=== PATIENT | male | born 1960 | race Caucasian/White ===

== ENCOUNTER 2017-01-07 07:07 | Emergency (ER) | payer OTHER ==
--- NOTE | ~2017-01-07 | EKG ---
PATIENT: EVA QUINTANA UNIT #: [id number] Ventricular Rate: 80 BPM Atrial Rate: 80 BPM P-R Interval: 160 ms QRS Duration: 74 ms Q-T Interval: 364 ms QTC Calculation(Bezet): 419 ms P Simms: 24 degrees Calculated R Simms: 24 degrees Calculated T Simms: 19 degrees Diagnosis Line: Normal sinus rhythm Diagnosis Line: Normal ECG Diagnosis Line: When compared with ECG of 29-NOV-2013 10:43, Diagnosis Line: No significant change was found Diagnosis Line: Confirmed by SALEEM STEVENSON MD ([id number]) on 01/08/2017 Diagnosis Line: 10:35:29 AM INTERPRETING MD: ELVA CONDE
--- NOTE | ~2017-01-07 | MR18 ---
[facility] RADIOLOGY TEXT RESULTS PATIENT: EVA QUINTANA LOCATION: [facility] : 60 UNIT #: [id number] AGE: [address]: Dante Moralez MD SEX: M ORDER DR: [id number] [place], [place] [address] [id number] E MR#: [id number] Acc #: [id number] NAME: EVA QUINTANA : 1960 SEX: M STUDY DATE/TIME: 01/07/2017 9:52 UNIT: [facility] ROOM: STUDY DESCRIPTION: MR Brain Wo Contrast Attending Physician: Dante Moralez M.D. Ordering Physician: Dante Moralez M.D. Primary Care Physician: Jonah Carmona M.D. [facility] REPORT This report is preliminary unless electronic signature is present. EXAM Brain MRI without contrast 01/07/2017 PROCEDURE Unenhanced brain MRI COMPARISON 11/29/2013 HISTORY Difficulty with word finding. Dizziness and disorientation began this morning at 06:15. FINDINGS There is no MR evidence of acute ischemia. There is no evidence of acute intracranial hemorrhage. 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 Brain parenchymal signal is otherwise normal and there is no hydrocephalus or extraaxial fluid collection. IMPRESSION Essentially normal brain MRI without contrast. No acute ischemia or acute hemorrhage or mass. 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 No acute abnormality is seen. Dictated by... Coy Jack M.D. THIS IS AN ELECTRONICALLY VERIFIED REPORT Coy Jack M.D. at 01/07/2017 1:18 PM TEV/cmm [facility] RADIOLOGY TEXT RESULTS PATIENT: EVA QUINTANA LOCATION: [facility] : 60 UNIT #: [id number] AGE: [address]: Dante Moralez MD SEX: M ORDER DR: TD: 01/07/2017 13:07 JOB #: [id number] [facility] REPORT Page 1 of 1 COPY
[~2017-01-07 07:07] MED LIST: ALPRAZOLAM; AMITRYPTYLINE; ANTIVERT PO; ASPIRINEC; AUGMENTIN; NAPROXEN PO; ZOFRANODT SL
[2017-01-07 07:41] LABS: BASOPHIL# 0.1 X10e3 (0-0.3); EOSINOPHIL# 0.1 X10e3 (0-0.7); EOSINOPHIL% 1.3 % (0.0-7.0); HEMATOCRIT 46.9 % (38.0-50.0); HEMOGLOBIN 15.8 gm/dL (13.0-16.0); LYMPHOCYTE# 2.1 X10e3 (1.0-3.5); LYMPHOCYTE% 20.7 % (17.0-45.0); MEAN CELL VOLUME 91.8 FL (83-96); MEAN CORPUSCULAR HEMOGLOBIN 30.9 PG (28-34); MEAN CORPUSCULAR HGB CONC 33.7 g/dL (30-36); MEAN PLATELET VOLUME 8.8 FL (6.5-11.5); MONOCYTE# 0.7 X10e3 (0-1.0); NEUTROPHIL# 7.1 X10e3 (1.5-7.1); PLATELET COUNT 255 X10e3 (140-420); RED BLOOD COUNT 5.11 X10e (3.90-5.60); RED CELL DISTRIBUTION WIDTH 13.1 % (11.0-15.5); WHITE BLOOD COUNT 10.1 X10e3 (4.0-10.5)
[2017-01-07 07:44] LABS: DIFF IND NO
[2017-01-07 07:55] LABS: POC - CKMB <1.0 ng/mL (0.0-7.9); POC - TROPONIN <0.05 ng/mL (<=0.05)
[2017-01-07 08:11] LABS: ALBUMIN SERUM 4.3 g/dL (3.5-5.0); ALKALINE PHOSPHATASE 77 U/L (32-92); ALT (SGPT) 24 U/L (10-40); AST (SGOT) 20 U/L (10-42); BILIRUBIN,TOTAL 0.8 mg/dL (0.2-2.0); BLOOD UREA NITROGEN 20 mg/dL (9-23); CALCIUM SERUM 9.2 mg/dL (8.4-10.2); CARBON DIOXIDE 24 mmol/L (22-31); CHLORIDE 106 mmol/L (100-111); CREATININE SERUM 0.8 mg/dL (0.6-1.4); GLOM FILT RATE Estimated 99.9 mL/min (>60); GLUCOSE FASTING 117 mg/dL (70-110); POTASSIUM 3.5 mmol/L (3.5-5.1); PROTEIN TOTAL SERUM 7.5 g/dL (6.0-8.3); SODIUM 139 mmol/L (135-145)
[2017-01-07 08:16] LABS: BILIRUBIN, DIRECT <0.1 mg/dL (0.0-0.2); BILIRUBIN,INDIRECT 0.7 mg/dL (0.0-0.9)
[2017-01-07 09:06] LABS: URINE SOURCE CLEAN CATCH
[2017-01-07 09:12] LABS: URINE APPEARANCE CLEAR; URINE BILIRUBIN NEG (NEG); URINE BLOOD NEG (NEG); URINE COLOR YELLOW; URINE GLUCOSE NEG (NEG); URINE KETONE NEG (NEG); URINE LEUKOCYTE ESTERASE NEG (NEG); URINE NITRATE NEG (NEG); URINE PROTEIN NEG (NEG); URINE SPECIFIC GRAVITY 1.017 (1.003-1.035)
[2017-01-07 09:17] LABS: CULTURE INDICATED? NO
[2017-01-07 09:36] LABS: POC - CKMB <1.0 ng/mL (0.0-7.9); POC - TROPONIN <0.05 ng/mL (<=0.05)
== END 2017-01-07 14:16 | disposition home or self-care (01) ==
LOC: CED 07:07
PROVIDERS: Emergency Medicine; Nurse Practitioner
DX: R42 Dizziness and giddiness (principal); F43.0 Acute stress reaction; F32.9 Major depressive disorder, single episode, unspecified
CPT/HCPCS: 36415; 70551; 80048; 80076; 81003; 82553; 82947; 84484; 85025; 93005; 99284